=== PATIENT | female | born 1975 | race Caucasian/White ===

== ENCOUNTER 2017-02-24 12:02 | Emergency (ER) | payer BC ==
[~2017-02-24] VITALS: Ht 152.4 cm; Wt 65.0 kg
[2017-02-24 12:04] VITALS: BP 138/74; PULSE 100; RESP 20; TEMP 97.9; O2SAT 99
[2017-02-24 12:17] VITALS: BP 139/80; PULSE 84; RESP 18; TEMP 98.8; O2SAT 100
[2017-02-24] MEDS ORDERED: LORazepam 2 MG/ML VIAL IV PUSH ONE (12:30)
[2017-02-24] MEDS ORDERED: KETOROLAC TROMETHAMINE 30 MG/ML (IVP) VIAL IV PUSH ONE (12:30)
[2017-02-24] MEDS ORDERED: SODIUM CHLORIDE 0.9% FLUSH 10 ML FLUSH IVF PRN (12:30)
--- NOTE | 2017-02-24 12:32 | PD ---
HPI Chief Complaint: Chest Pain Time Seen by Provider: 12:22 Travel History International Travel<30 days: No Contact w/Intl Traveler<30days: No Traveled to known affect area: No History of Present Illness HPI Examined in the presence of female nurse. 41-year-old female presents for evaluation of chest pain. Symptoms started 1 week ago. She describes it as a "heaviness" in the center of her chest which is constant. There are no aggravating or relieving factors. She endorses some paresthesias in her right arm as well as a "hot" sensation on both ears and some stiffness in her neck. She denies nausea or vomiting, shortness of breath, cough or congestion, fevers or chills, rash or recent travel, abdominal pain, lower extremity edema, history of DVT or PE. She reports that she has been having asthma and reflux symptoms for the past month but this feels different. She denies any known family history of coronary artery disease. She denies any personal history of hypertension, hyperlipidemia, diabetes, tobacco use. Primary care physician is Dr. Faustin. She has no other complaints. [facility] Social History Alcohol Use: No Tobacco Use: No Allergies-Medications (Allergen,Severity, Reaction): Coded Allergies: No Known Allergies (Unverified , 02/24/17) Reported Meds & Prescriptions Reported Meds & Active Scripts Active Reported Azurette (Desogestrel-Ethinyl Estradiol) 0.15-0.02/0.01 Mg (09/01) Tab 1 Tab PO DAILY Review of Systems Except as stated in HPI: all other systems reviewed are Neg Physical Exam Narrative GENERAL: This is a well-developed well-nourished female who appears somewhat anxious on initial examination. SKIN: Warm and dry. HEAD: Atraumatic. Normocephalic. EYES: Pupils equal and round. No scleral icterus. No injection or drainage. ENT: No nasal bleeding or discharge. Mucous membranes pink and moist. Tympanic movements appear normal. NECK: Trachea midline. No JVD. Neck supple full range of motion. No lymphadenopathy. CARDIOVASCULAR: Regular rate and rhythm. No murmur appreciated. RESPIRATORY: No accessory muscle use. Clear to auscultation. Breath sounds equal bilaterally. GASTROINTESTINAL: Abdomen soft, non-tender, nondistended. Hepatic and splenic margins not palpable. MUSCULOSKELETAL: No obvious deformities. No edema. NEUROLOGICAL: Awake and alert. No obvious cranial nerve deficits. Motor grossly within normal limits. Normal speech. PSYCHIATRIC: Appropriate mood and affect; insight and judgment normal. Data Data Last Documented VS Vital Signs Date Time Temp Pulse Resp B/P Pulse Ox O2 Delivery O2 Flow Rate FiO2 02/24/17 12:33 132/81 123/78 02/24/17 12:33 100 Nasal Cannula 2 02/24/17: 98.8 84 18 Orders Electrocardiogram (02/24/17 12:27) Ckmb (Isoenzyme) Profile (02/24/17 12:27) Complete Blood Count With Diff (02/24/17 12:27) Comprehensive Metabolic Panel (02/24/17 12:) D-Dimer (02/24/17 12:) Magnesium (Mg) (02/24/17 12:) Prothrombin Time / Inr (Pt) (02/24/17 12:) Act Partial Throm Time (Ptt) (02/24/17 12:) Troponin I (02/24/17 12:) Lipase (02/24/17 12:27) Chest, Single Ap (02/24/17 12:27) Ecg Monitoring (02/24/17 12:27) Bilateral Bp Monitoring (02/24/17 12:) Iv Access Insert/Monitor (02/24/17 12:) Oximetry (02/24/17 12:27) Oxygen Administration (02/24/17 12:27) Sodium Chloride 0.9% Flush (Ns Flush) (02/24/17 12:30) Ed Urine Pregnancytest Poc (02/24/17 12:27) Lorazepam Inj (Ativan Inj) (02/24/17 12:30) Ketorolac Inj (Toradol Inj) (02/24/17 12:30) Potassium Chloride (Kcl) (02/24/17 13:45) Labs Laboratory Tests Test 02/24/17 12:43 White Blood Count 8.3 TH/MM3 Red Blood Count 4.61 MIL/MM3 Hemoglobin 14.0 GM/DL Hematocrit 40.6 % Mean Corpuscular Volume 88.0 FL Mean Corpuscular Hemoglobin 30.5 PG Mean Corpuscular Hemoglobin 34.6 % Concent Red Cell Distribution Width 13.2 % Platelet Count 222 TH/MM3 Mean Platelet Volume 9.5 FL Neutrophils (%) (Auto) 49.0 % Lymphocytes (%) (Auto) 41.8 % Monocytes (%) (Auto) 7.6 % Eosinophils (%) (Auto) 1.3 % Basophils (%) (Auto) 0.3 % Neutrophils # (Auto) 4.1 TH/MM3 Lymphocytes # (Auto) 3.5 TH/MM3 Monocytes # (Auto) 0.6 TH/MM3 Eosinophils # (Auto) 0.1 TH/MM3 Basophils # (Auto) 0.0 TH/MM3 CBC Comment DIFF FINAL Differential Comment Prothrombin Time 10.0 SEC Prothromb Time International 0.9 RATIO Ratio Activated Partial 25.4 SEC Thromboplast Time D-Dimer Quantitative (PE/DVT) 0.47 MG/L FEU Sodium Level 138 MEQ/L Potassium Level 3.3 MEQ/L Chloride Level 105 MEQ/L Carbon Dioxide Level 24.8 MEQ/L Anion Gap 8 MEQ/L Blood Urea Nitrogen 15 MG/DL Creatinine 0.70 MG/DL Estimat Glomerular Filtration 93 ML/MIN Rate Random Glucose 86 MG/DL Calcium Level 8.5 MG/DL Magnesium Level 2.1 MG/DL Total Bilirubin 0.3 MG/DL Aspartate Amino Transf 14 U/L (AST/SGOT) Alanine Aminotransferase 23 U/L (ALT/SGPT) Alkaline Phosphatase 47 U/L Total Creatine Kinase 53 U/L Troponin I LESS THAN 0.02 NG/ML Total Protein 7.0 GM/DL Albumin 3.3 GM/DL Lipase 153 U/L MDM Medical Decision Making Medical Screen Exam Complete: Yes Emergency Medical Condition: Yes Medical Record Reviewed: Yes Interpretation(s) EKG reveals sinus rhythm, rate 97 Differential Diagnosis Viral syndrome, pneumothorax, costochondritis, pericarditis, myocarditis, pulmonary embolism, acute coronary syndrome, aortic dissection, gastritis Narrative Course This is a 41-year-old female is for evaluation of one week of chest heaviness, paresthesias in the right arm, some "hot" sensation to the ears and stiff neck. Physical examination is reassuring. She has no meningeal signs. She is afebrile. She appears somewhat anxious and this could be attributing to her low -grade tachycardia. Her abdomen is soft and nontender. The patient was placed on ECG monitoring and pulse oximetry. A 12-lead EKG was immediately obtained and interpreted. plan is for basic lab work, chest x-ray. The patient's lab work and imaging studies are reassuring. Her d-dimer is negative. Her cardiac enzymes are negative and her EKG is nonischemic. Reassuringly the patient has no major risk factors for acute coronary syndrome and her heart score is 0. Her week long duration of discomfort is very atypical. At this point in time the plan will be to have the patient follow-up with her primary care physician. She does report that she has no outpatient endoscopy scheduled at some point in the future to further evaluate her GERD symptoms. Diagnosis Primary Impression: Atypical chest pain Additional Impression: Hypokalemia Additional Instructions: Follow-up closely with primary care physician. Return for any emergent medical conditions. Med/Other Pt SpecificInfo: No Change to Meds Disposition: 01 DISCHARGE HOME Condition: Stable Héctor Jha Feb 24, 2017 12:32
[2017-02-24 12:33] VITALS: BP_SYST 123; BP_SYST 132; BP_DIAS 78; BP_DIAS 81
[2017-02-24] MEDS ORDERED: DESO1TAB14 PO (12:41)
--- NOTE | 2017-02-24 13:07 | RADRPT ---
EXAM DATE/TIME: 02/24/2017 12:27 [facility] COMPARISON: No previous studies available for comparison. INDICATIONS : Chest pain, short of breath. MEDICAL HISTORY : Gastroesophageal reflux disease. SURGICAL HISTORY : None. ENCOUNTER: Initial ACUITY: 1 week PAIN SCORE: 9/10 LOCATION: Bilateral chest FINDINGS: A single view of the chest demonstrates the lungs to be symmetrically aerated without evidence of mas s, infiltrate or effusion. The cardiomediastinal contours are unremarkable. Osseous structures are intact. CONCLUSION: 1. No acute cardiopulmonary disease. Armando Cartwright MD on February 24, 2017 at 13:05 Board Certified Radiologist. This report was verified electronically.
[2017-02-24 13:09] LABS: AUTOMATED NEUTROPHIL # 4.1 TH/MM3 (1.8-7.7); BASOPHIL % 0.3 % (0.0-2.0); EOSINOPHIL # 0.1 TH/MM3 (0-0.4); EOSINOPHIL % 1.3 % (0.0-4.0); HEMATOCRIT 40.6 % (35.0-46.0); HEMO FLAGS DIFF FINAL; LYMPH % 41.8 % (9.0-44.0); LYMPHOCYTE # 3.5 TH/MM3 (1.0-4.8); MEAN CORPUSCULAR HEMOGLOBIN 30.5 PG (27.0-34.0); MEAN CORPUSCULAR HGB CONC 34.6 % (32.0-36.0); MONO % 7.6 % (0.0-8.0); PLATELET COUNT 222 TH/MM3 (150-450); RED BLOOD COUNT 4.61 MIL/MM3 (4.00-5.30); RED CELL DISTRIBUTION WIDTH 13.2 % (11.6-17.2); WHITE BLOOD COUNT 8.3 TH/MM3 (4.0-11.0)
[2017-02-24 13:21] LABS: APTT (PATIENT) 25.4 SEC (24.3-30.1); INTERNATIONAL NORMALIZED RATIO 0.9 RATIO
[2017-02-24 13:30] LABS: BLOOD UREA NITROGEN 15 MG/DL (7-18)
[2017-02-24 13:31] LABS: ALT (GPT) 23 U/L (10-53); ANION GAP 8 MEQ/L (5-15); AST (GOT) 14 U/L (15-37); BICARBONATE 24.8 MEQ/L (21.0-32.0); CHLORIDE 105 MEQ/L (98-107); GLOMERULAR FILTRATION RATE 93 ML/MIN (>89); MAGNESIUM 2.1 MG/DL (1.5-2.5); POTASSIUM 3.3 MEQ/L (3.5-5.1); SODIUM (NA) 138 MEQ/L (136-145)
[2017-02-24 13:36] LABS: ALKALINE PHOSPHATASE 47 U/L (45-117); TOTAL BILIRUBIN ADULT 0.3 MG/DL (0.2-1.0)
[2017-02-24] MEDS ORDERED: POTASSIUM CHLORIDE 20 MEQ CONTROLLED RELEASE TAB PO ONE (13:45)
[2017-02-24 13:51] LABS: CREATINE KINASE 53 U/L (26-192)
[2017-02-24 13:56] VITALS: BP 107/60; PULSE 88; RESP 16; O2SAT 100
--- NOTE | 2017-02-25 13:27 | EKG ---
Date Performed: 02/24/2017 Time Performed: 12:21:56 PTAGE: 41 years EKG: Sinus rhythm NORMAL ECG NO PREVIOUS TRACING DOCTOR: Danielito Islas Interpretating Date/Time 02/25/2017 13:23:15
== END 2017-02-24 14:59 | disposition home or self-care (01) ==
LOC: NEPC 12:02
DX: R07.89 Other chest pain (principal); E87.6 Hypokalemia; R00.0 Tachycardia, unspecified
CPT/HCPCS: 71010; 80053; 82550; 83690; 83735; 84484; 85025; 85379; 85610; 85730; 93005; 96374; 96375; 99285; J1885; J2060

== ENCOUNTER 2017-12-09 12:03 | Observation (INO) | payer BC ==
[~2017-12-09] VITALS: Ht 152.4 cm; Wt 64.1 kg
[~2017-12-09 12:03] MED LIST: DESO1TAB14 PO
[2017-12-09 12:07] VITALS: BP 134/88; PULSE 101; RESP 20; O2SAT 100
[2017-12-09 12:22] VITALS: BP 130/89; PULSE 90; RESP 18; O2SAT 98
[2017-12-09] MEDS ORDERED: SODIUM CHLORIDE 0.9% FLUSH 10 ML FLUSH IVF PRN (12:30)
--- NOTE | 2017-12-09 12:38 | RADRPT ---
EXAM DATE/TIME: 12/09/2017 12:29 [facility] COMPARISON: No previous studies available for comparison. INDICATIONS : Stroke alert, Left sided weakness in arm and leg RADIATION DOSE: 56.38 CTDIvol (mGy) This report was called to Armen MERA at 1235 MEDICAL HISTORY : PBC, Autoimmune disease SURGICAL HISTORY : Anal fistula repair ENCOUNTER: Initial ACUITY: 1 day PAIN SCALE: 0/10 LOCATION: cranial TECHNIQUE: Multiple contiguous axial images were obtained of the head. Using automated exposure control and adj ustment of the mA and/or kV according to patient size, radiation dose was kept as low as reasonably a chievable to obtain optimal diagnostic quality images. DICOM format image data is available electro nically for review and comparison. FINDINGS: CEREBRUM: The ventricles are normal for age. No evidence of midline shift, mass lesion, hemorrhage or acute in farction. No extra-axial fluid collections are seen. POSTERIOR FOSSA: The cerebellum and brainstem are intact. The 4th ventricle is midline. The cerebellopontine angle i s unremarkable. EXTRACRANIAL: The visualized portion of the orbits is intact. SKULL: The calvaria is intact. No evidence of skull fracture. CONCLUSION: Negative for acute process or hemorrhage Harman Stacy MD FACR on December 09, 2017 at 12:35 Board Certified Radiologist. This report was verified electronically.
--- NOTE | 2017-12-09 12:41 | PD ---
HPI Chief Complaint: Neuro Symptoms/ Deficits Time Seen by Provider: 12:23 Travel History International Travel<30 days: No Contact w/Intl Traveler<30days: No Traveled to known affect area: No History of Present Illness HPI 42-year-old female presents to the emergency department via private vehicle for evaluation of chest pain as well as difficulty speaking, left arm numbness and weakness to the left leg. Patient states that at approximately 11 AM, she was on the phone when she started to have difficulty speaking and numbness to her left arm as well as chest pain and weakness of the left lower extremity. Patient also reports a headache as well. She states that she has been having chest pain intermittently for over a year. She had a stress test over a year ago. She recently saw a new clin asst and she states the new clin asst thought there might have been an issue with the previous stress test and it was not normal. She was on metoprolol, but was taken off of that recently by her clin asst, Dr. Stevens, and [place]. She states that she was put on nitro patches, but they made her feel worse and gave her severe headaches. She was then placed on amlodipine. Patient currently rates the chest pain 8/10, pressure, to the midsternal chest, without radiation. No exacerbating or alleviating factors. Moderate severity. PFSH Past Medical History Anemia: Yes Autoimmune Disease: Yes (PBC) Reproductive: Yes ?: Not : 1 Para: 1 Past Surgical History Genitourinary Surgery: Yes Other Surgery: Yes (ANAL FISURE REPAIR) Social History Alcohol Use: No Tobacco Use: No Substance Use: No Allergies-Medications (Allergen,Severity, Reaction): Coded Allergies: morphine (Verified Allergy, Unknown, 12/09/17) Reported Meds & Prescriptions Reported Meds & Active Scripts Active Reported Amlodipine (Amlodipine Besylate) 2.5 Mg Tab 2.5 Mg PO DAILY Azurette (Desogestrel-Ethinyl Estradiol) 0.15-0.02/0.01 Mg (09/01) Tab 1 Tab PO DAILY Review of Systems Except as stated in HPI: all other systems reviewed are Neg Physical Exam Narrative GENERAL: Well-nourished, well-developed female patient, afebrile. SKIN: Focused skin assessment warm/dry. HEAD: Normocephalic. Atraumatic ENT: Mucosa pink and moist. No erythema or exudates. No uvular edema. No uvular , palatal, or tonsillar deviation. Airway patent. Nasal turbinates appear normal without nasal blood, purulent drainage or septal hematoma. Bilateral tympanic membranes clear without erythema or perforation. EYES: No scleral icterus. No injection or drainage. PERRLA. EOM intact NECK: Supple, trachea midline. No JVD or lymphadenopathy. CARDIOVASCULAR: Regular rate and rhythm without murmurs, gallops, or rubs. Lateral radial and pedal pulses 2+ RESPIRATORY: Breath sounds equal bilaterally. No accessory muscle use. Lung sounds clear to auscultation GASTROINTESTINAL: Abdomen soft, non-tender, nondistended. MUSCULOSKELETAL: No cyanosis, or edema. Patient reports sensation loss to left upper extremity. Bilateral upper extremities extremity strength 5/5. Left lower extremity strength 4/5, right lower extremity strength 5/5. She has slight difficulty with heel to mckenna with the left leg. Finger to nose is normal bilaterally BACK: Nontender without obvious deformity. No CVA tenderness. Data Data Last Documented VS Vital Signs Date Time Temp Pulse Resp B/P (MAP) Pulse Ox O2 Delivery O2 Flow Rate FiO2 12/09/17 12:43 103 16 129/75 (93) 100 Room Air Orders Orders Prothrombin Time / Inr (Pt) (12/09/17 12:23) Act Partial Throm Time (Ptt) (12/09/17 12:23) Complete Blood Count With Diff (12/09/17 12:23) Basic Metabolic Panel (Bmp) (12/09/17 12:23) Creatine Kinase (Cpk) (12/09/17 12:23) Troponin I (12/09/17 12:23) Urinalysis - C+S If Indicated (12/09/17 12:23) Chest, Single Ap (12/09/17 12:23) Ecg Monitoring (12/09/17 12:23) Iv Access Insert/Monitor (12/09/17 12:23) Oximetry (12/09/17 12:23) Sodium Chloride 0.9% Flush (Ns Flush) (12/09/17 12:30) I-Stat Profile (12/09/17 12:27) Magnesium (Mg) (12/09/17 12:27) Electrocardiogram (12/09/17 ) Ct Brain W/O Iv Contrast(Rout) (12/09/17 12:28) Lorazepam Inj (Ativan Inj) (12/09/17 12:45) Ed Urine Pregnancytest Poc (12/09/17 12:42) Aspirin Chew (Aspirin Chew) (12/09/17 13:00) Urine Culture (12/09/17 12:48) Sodium Chlor 0.9% 1000 Ml Inj (Ns 1000 M (12/09/17 13:30) Labs Laboratory Tests Test 12/09/17 12:30 12/09/17 12:48 White Blood Count 6.3 TH/MM3 Red Blood Count 4.46 MIL/MM3 Hemoglobin 14.4 GM/DL Bedside Hemoglobin 13.3 G/DL Hematocrit 41.0 % Bedside Hematocrit 39.0 % Mean Corpuscular Volume 92.0 FL Mean Corpuscular Hemoglobin 32.3 PG Mean Corpuscular Hemoglobin Concent 35.1 % Red Cell Distribution Width 13.9 % Platelet Count 227 TH/MM3 Mean Platelet Volume 9.0 FL Neutrophils (%) (Auto) 60.6 % Lymphocytes (%) (Auto) 29.5 % Monocytes (%) (Auto) 5.8 % Eosinophils (%) (Auto) 3.5 % Basophils (%) (Auto) 0.6 % Neutrophils # (Auto) 3.8 TH/MM3 Lymphocytes # (Auto) 1.9 TH/MM3 Monocytes # (Auto) 0.4 TH/MM3 Eosinophils # (Auto) 0.2 TH/MM3 Basophils # (Auto) 0.0 TH/MM3 CBC Comment DIFF FINAL Differential Comment Prothrombin Time 9.7 SEC Prothromb Time International Ratio 1.0 RATIO Activated Partial Thromboplast Time 25.9 SEC Bedside Sodium 139 MMOL/L Blood Urea Nitrogen 14 MG/DL Creatinine 0.59 MG/DL Random Glucose 90 MG/DL Calcium Level 9.1 MG/DL Sodium Level 139 MEQ/L Potassium Level 3.4 MEQ/L Chloride Level 108 MEQ/L Carbon Dioxide Level 21.3 MEQ/L Bedside Potassium 3.5 MMOL/L Bedside Chloride 107 MMOL/L Anion Gap 10 MEQ/L Bedside Blood Urea Nitrogen 13 MG/DL Bedside Creatinine 0.4 MG/DL Estimat Glomerular Filtration Rate 112 ML/MIN Bedside Glucose 92 MG/DL Magnesium Level 2.0 MG/DL Total Creatine Kinase 68 U/L Troponin I LESS THAN 0.02 NG/ML Urine Color LIGHT-YELLOW Urine Turbidity CLEAR Urine pH 5.5 Urine Specific [place] 1.004 Urine Protein NEG mg/dL Urine Glucose (UA) NEG mg/dL Urine Ketones 40 mg/dL Urine Occult Blood MOD Urine Nitrite NEG Urine Bilirubin NEG Urine Urobilinogen LESS THAN 2.0 MG/DL Urine Leukocyte Esterase NEG Urine RBC 12 /hpf Urine WBC 1 /hpf Urine Squamous Epithelial Cells 1 /hpf Urine Bacteria RARE /hpf Urine Mucus FEW /lpf Microscopic Urinalysis Comment CATH-CULTURE IND MDM Medical Screen Exam Complete: Yes Emergency Medical Condition: Yes Medical Record Reviewed: Yes EKG Prior to Arrival: Yes Differential Diagnosis CVA vs. TIA vs. ACS. vs. anxiety vs. intracranial hemorrhage vs. chest wall pain Narrative Course 42-year-old female presents to the emergency department for evaluation after an episode of difficulty speaking, left arm numbness, left leg weakness, chest pain. She denies any difficulty speaking at this time and states symptoms are slightly better. NIH stroke scale is 2. Stroke alert is called at 1223, Dr. Forbes was paged at 1223. Dr. Jones spoke with him at 1229. Dr. Stacy called at [address] of the head was negative. Upon further questioning of the patient and her , they state that she has had these symptoms with her chest pain in the past. Patient states last time they were like this was approximately 1 year ago. Patient is not TPA candidate. IV access established. CBC, BMP, CK, troponin, PTT, PT/INR, magnesium, UA, urine test are ordered and pending. CT of the brain and chest x-ray are ordered and pending. Patient is given Ativan 0.5 mg IV for anxiety. EKG shows sinus tachycardia, HR 103, no acute ST changes. CBC is unremarkable. BMP shows no acute abnormality. CK is 68. Troponin is less than 0.02. Magnesium is 2.0. Coags show no acute abnormality. UA shows 12 RBCs, 1 WBC, rare bacteria. UPT is negative. Ct of the brain is negative. Chest x-ray shows no acute disease. Patient is given ASA [address] was negative. Patient will be admitted for further evaluation of chest pain, neurological symptoms. [facility] is paged for admission. Dr. Edward accepted admission. Stroke Alert NIHSS NIH Stroke Scale Result: 2 NIHSS Time Completed: 12:18 Diagnosis Diagnosis: Primary Impression: Chest pain Qualified Codes: R07.9 - Chest pain, unspecified Additional Impression: Neurological complaint Admitting Physician Requests: Observation Tomasa Ayers Dec 09, 2017 12:41
[2017-12-09 12:43] VITALS: BP 129/75; PULSE 103; RESP 16; O2SAT 100
[2017-12-09] MEDS ORDERED: AMLO2.5T PO (12:43)
[2017-12-09] MEDS ORDERED: LORazepam 2 MG/ML VIAL IV PUSH ONE (12:45)
[2017-12-09 12:48] LABS: AUTOMATED NEUTROPHIL # 3.8 TH/MM3 (1.8-7.7); BASOPHIL % 0.6 % (0.0-2.0); EOSINOPHIL # 0.2 TH/MM3 (0-0.4); EOSINOPHIL % 3.5 % (0.0-4.0); HEMOGLOBIN 14.4 GM/DL (11.6-15.3); LYMPH % 29.5 % (9.0-44.0); LYMPHOCYTE # 1.9 TH/MM3 (1.0-4.8); MEAN CORPUSCULAR HEMOGLOBIN 32.3 PG (27.0-34.0); MEAN CORPUSCULAR HGB CONC 35.1 % (32.0-36.0); MONO % 5.8 % (0.0-8.0); MONOCYTE # 0.4 TH/MM3 (0-0.9); NEUT % 60.6 % (16.0-70.0); PLATELET COUNT 227 TH/MM3 (150-450); RED BLOOD COUNT 4.46 MIL/MM3 (4.00-5.30); RED CELL DISTRIBUTION WIDTH 13.9 % (11.6-17.2); WHITE BLOOD COUNT 6.3 TH/MM3 (4.0-11.0)
[2017-12-09 12:56] LABS: PROTHROMBIN TIME - PATIENT 9.7 SEC (9.8-11.6)
--- NOTE | 2017-12-09 12:58 | RADRPT ---
EXAM DATE/TIME: 12/09/2017 12:47 [facility] COMPARISON: CHEST SINGLE AP, February 24, 2017, 12:27. INDICATIONS : Headache, chest pain, and left arm numbness. MEDICAL HISTORY : Gastroesophageal reflux disease. SURGICAL HISTORY : None. ENCOUNTER: Initial ACUITY: 1 day PAIN SCORE: 6/10 LOCATION: Bilateral chest FINDINGS: A single view of the chest demonstrates the lungs to be symmetrically aerated without evidence of mas s, infiltrate or effusion. The cardiomediastinal contours are unremarkable. Osseous structures are intact. CONCLUSION: No acute disease. Connor White MD on December 09, 2017 at 12:55 Board Certified Radiologist. This report was verified electronically.
[2017-12-09] MEDS ORDERED: ASPIRIN 81 MG CHEW TAB CHEW ONE (13:00)
[2017-12-09 13:01] LABS: BACTERIA, URINE RARE /hpf; BILIRUBIN, URINE NEG (NEG); BLOOD, URINE MOD (NEG); GLUCOSE,URINE NEG (NEG); KETONE, URINE 40 mg/dL (NEG); MUCUS URINE FEW /lpf (OCC); NITRITE,URINE NEG (NEG); PH, URINE 5.5 (5.0-8.5); SQUAMOUS EPITHELIAL CELL URINE 1 /hpf (0-5); URINE COLOR LIGHT-YELLOW (YELLW/STRAW); URINE LEUKOCYTE ESTERASE NEG (NEG)
[2017-12-09 13:05] LABS: BICARBONATE 21.3 MEQ/L (21.0-32.0); BLOOD UREA NITROGEN 14 MG/DL (7-18); CALCIUM 9.1 MG/DL (8.5-10.1); CHLORIDE 108 MEQ/L (98-107); CREATININE 0.59 MG/DL (0.50-1.00); GLOMERULAR FILTRATION RATE 112 ML/MIN (>89); GLUCOSE,RANDOM 90 MG/DL (74-106); SODIUM (NA) 139 MEQ/L (136-145)
[2017-12-09 13:09] LABS: TROPONIN I LESS THAN 0.02 NG/ML (0.02-0.05)
[2017-12-09] MEDS ORDERED: SODIUM CHLOR 0.9% 1000 ML INJ 1,000 ML IV ONE (13:30)
[2017-12-09] MEDS ORDERED: BISACODYL 10 MG SUPP RECTAL PRN (14:30)
[2017-12-09] MEDS ORDERED: NALOXONE HCL 0.4 MG/ML AMP IV PUSH PRN (14:30)
[2017-12-09] MEDS ORDERED: SODIUM CHLORIDE 0.9% FLUSH 10 ML FLUSH IV FLUSH PRN (14:30)
[2017-12-09] MEDS ORDERED: MAGNESIUM HYDROXIDE SUSP 30 ML CUP PO PRN (14:30)
[2017-12-09] MEDS ORDERED: LACTULOSE SYRUP 20 GM/30 ML CUP PO PRN (14:30)
[2017-12-09] MEDS ORDERED: ACETAMINOPHEN 325 MG TAB PO PRN (14:30)
[2017-12-09] MEDS ORDERED: SENNOSIDES 8.6 MG TAB PO PRN (14:30)
[2017-12-09] MEDS ORDERED: ONDANSETRON HCL 4 MG/2 ML VIAL IVP PRN (14:30)
--- NOTE | 2017-12-09 14:39 | HHI.HP ---
HPI Service [facility] Primary Care Physician Unknown Admission Diagnosis chest pain, neurological symptoms Diagnoses: Chief Complaint: Dysarthria, chest pain, left arm numbness and weakness of the left leg. Travel History International Travel<30 Days: No Contact w/Intl Traveler <30 Da: No Traveled to Known Affected Are: No History of Present Illness Ms. Pringle is a pleasant 42 year old female with history of possible mild hypertension who presents to the ED today after she had dysarthria, left arm numbness, tingling and left leg weakness. 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 She felt as if words were not coming out properly. She had a headache in the occipital area as well. She reports that she follows up with a sec reporting consultant who took her off metoprolol a while back. She does taken Amlodipine 2.5mg. At the time of this interview, patient reports some left arm numbness but improved. No chest pain, shortness of breath , cough, fever, chills. No changes in bowel or bladder habits. Review of Systems Except as stated in HPI: all other systems reviewed are Neg Past Family Social History Past Medical History Possible hypertension, mild Iron deficiency Past Surgical History Anal fissure surgery Reported Medications Amlodipine (Amlodipine Besylate) 2.5 Mg Tab 2.5 Mg PO DAILY Azurette (Desogestrel-Ethinyl Estradiol) 0.15-0.02/0.01 Mg (09/01) Tab 1 Tab PO DAILY Allergies: Coded Allergies: morphine (Verified Allergy, Unknown, 12/09/17) Family History Mother and sister have hypertension, thyroid disease, hyperlipidemia Social History Patient denies using tobacco, illicit drugs or alcohol. Physical Exam Vital Signs Vital Signs Date Time Temp Pulse Resp B/P (MAP) Pulse Ox O2 Delivery O2 Flow Rate FiO2 12/09/17 12:43 103 16 129/75 (93) 100 Room Air 12/09/17 12:22 90 18 130/89 (103) 98 Room Air 12/09/17 12:07 101 20 134/88 (103) 100 Physical Exam GENERAL: This is a well-nourished, well-developed patient, in no apparent distress. SKIN: No rashes, ecchymoses or lesions. Warm and dry. HEAD: Atraumatic. Normocephalic. No temporal or scalp tenderness. EYES: Pupils equal round and reactive. No injection or drainage. ENT: Nose without bleeding, purulent drainage or septal hematoma. Airway patent. NECK: Trachea midline. No lymphadenopathy. Supple, nontender, no meningeal signs. CARDIOVASCULAR: Regular rate and rhythm without murmurs, gallops, or rubs. No JVD. RESPIRATORY: Clear to auscultation. Breath sounds equal bilaterally. No wheezes , rales, or rhonchi. GASTROINTESTINAL: Abdomen soft, non-tender, nondistended. No guarding. MUSCULOSKELETAL: Extremities without clubbing, cyanosis, or edema. NEUROLOGICAL: Awake and alert. Cranial nerves II through XII intact. No focal neurological deficits. Normal speech. Laboratory Laboratory Tests Test 12/09/17 12:30 12/09/17 12:48 White Blood Count 6.3 Red Blood Count 4.46 Hemoglobin 14.4 Bedside Hemoglobin 13.3 Hematocrit 41.0 Bedside Hematocrit 39.0 Mean Corpuscular Volume 92.0 Mean Corpuscular Hemoglobin 32.3 Mean Corpuscular Hemoglobin Concent 35.1 Red Cell Distribution Width 13.9 Platelet Count 227 Mean Platelet Volume 9.0 Neutrophils (%) (Auto) 60.6 Lymphocytes (%) (Auto) 29.5 Monocytes (%) (Auto) 5.8 Eosinophils (%) (Auto) 3.5 Basophils (%) (Auto) 0.6 Neutrophils # (Auto) 3.8 Lymphocytes # (Auto) 1.9 Monocytes # (Auto) 0.4 Eosinophils # (Auto) 0.2 Basophils # (Auto) 0.0 CBC Comment DIFF FINAL Differential Comment Prothrombin Time 9.7 Prothromb Time International Ratio 1.0 Activated Partial Thromboplast Time 25.9 Bedside Sodium 139 Blood Urea Nitrogen 14 Creatinine 0.59 Random Glucose 90 Calcium Level 9.1 Sodium Level 139 Potassium Level 3.4 Chloride Level 108 Carbon Dioxide Level 21.3 Bedside Potassium 3.5 Bedside Chloride 107 Anion Gap 10 Bedside Blood Urea Nitrogen 13 Bedside Creatinine 0.4 Estimat Glomerular Filtration Rate 112 Bedside Glucose 92 Magnesium Level 2.0 Total Creatine Kinase 68 Troponin I LESS THAN 0.02 Urine Color LIGHT-YELLOW Urine Turbidity CLEAR Urine pH 5.5 Urine Specific [place] 1.004 Urine Protein NEG Urine Glucose (UA) NEG Urine Ketones 40 Urine Occult Blood MOD Urine Nitrite NEG Urine Bilirubin NEG Urine Urobilinogen LESS THAN 2.0 Urine Leukocyte Esterase NEG Urine RBC 12 Urine WBC 1 Urine Squamous Epithelial Cells 1 Urine Bacteria RARE Urine Mucus FEW Microscopic Urinalysis Comment CATH-CULTURE IND Date/Time Source Procedure Growth Status 12/09/17 12:48 Urine Catheterized Urine Urine Culture Pending Received Result Diagram: 12/09/17 1230 12/09/17 1230 Imaging Last Impressions Head CT 12/09/17 1228 Signed Impressions: Service Date/Time: Saturday, December 09, 2017 12:29 - CONCLUSION: Negative for acute process or hemorrhage Harman Stacy MD FACR Chest X-Ray 12/09/17 1223 Signed Impressions: Service Date/Time: Saturday, December 09, 2017 12:47 - CONCLUSION: No acute disease. Connor White MD Brain MRI 12/09/17 0000 Signed Impressions: Service Date/Time: Saturday, December 09, 2017 16:50 - CONCLUSION: Negative MRI of the brain. There is no restricted diffusion to suggest an acute ischemic event. Harman Stacy MD FACR Caprini VTE Risk Assessment Caprini VTE Risk Assessment: No/Low Risk (score <= 1) Caprini Risk Assessment Model Point Value = 1 Point Value = 2 Point Value = 3 Point Value = 5 Age 41-60 Minor surgery BMI > 25 kg/m2 Swollen legs Varicose veins or History of unexplained or recurrent spontaneous Oral contraceptives or hormone replacement Sepsis (< 1 month) Serious lung disease, including pneumonia (< 1 month) Abnormal pulmonary function Acute myocardial infarction Congestive heart failure (< 1 month) History of inflammatory bowel disease Medical patient at bed rest Age 61-74 Arthroscopic surgery Major open surgery (> 45 min) Laparoscopic surgery (> 45 min) Malignancy Confined to bed (> 72 hours) Immobilizing plaster cast Central venous access Age >= 75 History of VTE Family history of VTE Factor V Leiden Prothrombin [id number] Lupus anticoagulant Anticardiolipin antibodies Elevated serum homocysteine Heparin-induced thrombocytopenia Other congenital or acquired thrombophilia Stroke (< 1 month) Elective arthroplasty Hip, pelvis, or leg fracture Acute spinal cord injury (< 1 month) Prophylaxis Regimen Total Risk Factor Score Risk Level Prophylaxis Regimen 0-1 Low Early ambulation 2 Moderate Order ONE of the following: *Sequential Compression Device (SCD) *Heparin 5000 units SQ BID 3-4 Higher Order ONE of the following medications: *Heparin 5000 units SQ TID *Enoxaparin/Lovenox 40 mg SQ daily (WT < 150 kg, CrCl > 30 mL/min) *Enoxaparin/Lovenox 30 mg SQ daily (WT < 150 kg, CrCl > 10-29 mL/min) *Enoxaparin/Lovenox 30 mg SQ BID (WT < 150 kg, CrCl > 30 mL/min) AND/OR *Sequential Compression Device (SCD) 5 or more Highest Order ONE of the following medications: *Heparin 5000 units SQ TID (Preferred with Epidurals) *Enoxaparin/Lovenox 40 mg SQ daily (WT < 150 kg, CrCl > 30 mL/min) *Enoxaparin/Lovenox 30 mg SQ daily (WT < 150 kg, CrCl > 10-29 mL/min) *Enoxaparin/Lovenox 30 mg SQ BID (WT < 150 kg, CrCl > 30 mL/min) AND *Sequential Compression Device (SCD) Assessment and Plan Problem List: (1) Atypical chest pain ICD Code: R07.89 - Other chest pain Status: Acute Assessment and Plan Ms. Pringle is a pleasant 42 year old female with a history of possible mild HTN who presents to the ED on 12/09/2017 due to chest pressure, left arm tingling, numbness and left leg weakness as well as dysarthria. Symptoms largely improved by the time she came to the ED. CT head, MRI brain negative for any acute findings. Troponins X 2 negative. EKG unremarkable for any acute ischemic findings. Chest pressure No ischemic changes on EKG, Troponins negative. We will check total 3 sets of troponins. Possibly related to anxiety. Tachycardia Mild hypertension BP is normal to lower side. Would recommend discontinuing Amlodipine. Patient reports that with activity, her heart rate very often goes to 120s, 130s. Persistent tachycardia could cause tachycardia induced heart failure in future Will check TSH, Free T4. If unremarkable, it would be reasonable to start her on some beta park. Possible TIA Headache CT, MRI studies are negative for any acute stroke. Daily aspirin 81mg may be beneficial. Will check Lipid panel in the AM as well. Patient's symptoms may be related to headache - Acetaminophen for symptomatic treatments. Chronic Iron deficiency - patient takes iron supplements. Her Hgb, MCV are within normal range. Full code. Ambulation. Sal Edward DO Dec 09, 2017 14:39
[2017-12-09 14:44] VITALS: BP 96/59; PULSE 87; RESP 16; TEMP 98.2; O2SAT 99
[2017-12-09 15:57] VITALS: BP 93/57; PULSE 84; RESP 16; TEMP 98; O2SAT 96
--- NOTE | 2017-12-09 17:20 | RADRPT ---
EXAM DATE/TIME: 12/09/2017 16:50 [place] COMPARISON: No previous studies available for comparison. INDICATIONS : Left sided weakness. MEDICAL HISTORY : None. SURGICAL HISTORY : Anal fissure. ENCOUNTER: Initial ACUITY: 1 day PAIN SCORE: 0/10 LOCATION: head TECHNIQUE: Multiplanar, multisequence MRI of the brain was performed without contrast. FINDINGS: CEREBRUM: The ventricles are normal for age. No evidence of midline shift, mass lesion, hemorrhage or acute in farction. No extraaxial fluid collections are seen. The pituitary gland and suprasellar cistern are normal in configuration. WHITE MATTER: No significant signal abnormalities are seen in the white matter. POSTERIOR FOSSA: The cerebellum and brainstem are intact. The 4th ventricle is midline. The cerebellopontine angle is unremarkable. The cerebellar tonsils are normal in position. DIFFUSION IMAGING: No focal areas of restricted diffusion are seen. No evidence of acute infarction. EXTRACRANIAL: The visualized portions of the orbits and paranasal sinuses are unremarkable. CONCLUSION: Negative MRI of the brain. There is no restricted diffusion to suggest an acute ischemic event. Harman Stacy MD FACR on December 09, 2017 at 17:17 Board Certified Radiologist. This report was verified electronically.
[2017-12-09 23:35] VITALS: BP 94/53; PULSE 76; RESP 18; TEMP 97.9; O2SAT 97
[2017-12-10] MEDS: SODIUM CHLORIDE 0.9% FLUSH 10 ML FLUSH IV FLUSH SCH ×2 (00:37→09:43)
[2017-12-10 04:55] VITALS: BP 100/55; PULSE 86; RESP 18; TEMP 98.1; O2SAT 98
[2017-12-10] MEDS ORDERED: SODIUM CHLOR 0.9% 1000 ML INJ 1,000 ML IV ONE (06:15)
[2017-12-10] MEDS ORDERED: KETOROLAC TROMETHAMINE 30 MG/ML (IVP) VIAL IV PUSH ONE (06:30)
[2017-12-10 07:30] VITALS: BP 102/64; PULSE 79; RESP 16; TEMP 98.1; O2SAT 99
[2017-12-10 08:00] VITALS: PULSE 83
--- NOTE | 2017-12-10 09:47 | HHI.PR ---
Subjective Remarks in no acute distress. has on and off chest pain. Objective Vitals Vital Signs Date Time Temp Pulse Resp B/P (MAP) Pulse Ox O2 Delivery O2 Flow Rate FiO2 12/10/17 07:30 98.1 79 16 102/64 (77) 99 12/10/17 04:55 98.1 86 18 100/55 (70) 98 12/09/17 23:35 97.9 76 18 94/53 (67) 97 12/09/17 15:57 98.0 84 16 93/57 (69) 96 12/09/17 14:44 98.2 87 16 96/59 (71) 99 Room Air 12/09/17 12:43 103 16 129/75 (93) 100 Room Air 12/09/17 12:22 90 18 130/89 (103) 98 Room Air 12/09/17 12:07 101 20 134/88 (103) 100 Result Diagram: 12/09/17 1230 12/09/17 1230 Imaging Last Impressions Head CT 12/09/17 1228 Signed Impressions: Service Date/Time: Saturday, December 09, 2017 12:29 - CONCLUSION: Negative for acute process or hemorrhage Harman Stacy MD FACR Chest X-Ray 12/09/17 1223 Signed Impressions: Service Date/Time: Saturday, December 09, 2017 12:47 - CONCLUSION: No acute disease. Connor White MD Brain MRI 12/09/17 0000 Signed Impressions: Service Date/Time: Saturday, December 09, 2017 16:50 - CONCLUSION: Negative MRI of the brain. There is no restricted diffusion to suggest an acute ischemic event. Harman Stacy MD FACR Objective Remarks GENERAL: This is a well-nourished, well-developed patient, in no apparent distress. CARDIOVASCULAR: Regular rate and regular rhythm without murmurs, gallops, or rubs. RESPIRATORY: Clear to auscultation. Breath sounds equal bilaterally. No wheezes , rales, or rhonchi. GASTROINTESTINAL: Abdomen soft, non-tender, nondistended. Normal, active bowel sounds MUSCULOSKELETAL: Extremities without clubbing, cyanosis, or edema. NEURO: Alert & Oriented x4 to person, place, time, situation. Moves all ext x4 Medications and IVs Inpatient Medications Acetaminophen (Tylenol) 650 mg Q4H PRN PO Headache, fever, pain 1-4; Start at 14:30 Aspirin (Aspirin Chew) 162 mg ONCE ONCE CHEW Last administered on 12/09/17at 13 :47; Start 12/09/17 at 13:00; Stop 12/09/17 at 13:01; Status DC Bisacodyl (Dulcolax Supp) 10 mg DAILY PRN RECTAL SEVERE CONSITIPATION; Start at 14:30 Ketorolac Tromethamine (Toradol Inj) 30 mg ONCE ONCE IV PUSH Last administered on 12/10/17at 06:55; Start 12/10/17 at 06:30; Stop 12/10/17 at 06:31 ; Status DC Lactulose (Lactulose Liq) 30 ml DAILY PRN PO SEVERE CONSITIPATION; Start at 14:30 Lorazepam (Ativan Inj) 0.5 mg ONCE ONCE IV PUSH Last administered on at 13:46; Start 12/09/17 at 12:45; Stop 12/09/17 at 12:46; Status DC Magnesium Hydroxide (Milk Of Magnesia Liq) 30 ml Q12H PRN PO Mild constipation ; Start 12/09/17 at 14:30 Naloxone HCl (Narcan Inj) 0.4 mg UNSCH PRN IV PUSH SEE LABEL COMMENTS; Start at 14:30 Ondansetron HCl (Zofran Inj) 4 mg Q6H PRN IVP NAUSEA OR VOMITING; Start at 14:30 Sennosides (Senokot) 17.2 mg Q12H PRN PO Moderate constipation; Start 12/09/17 at 14:30 Sodium Chloride 1,000 ml @ 999 mls/hr BOLUS ONCE IV Last administered on 12/10at 06:56; Start 12/10/17 at 06:15; Stop 12/10/17 at 07:15; Status DC Sodium Chloride (NS Flush) 2 ml BID IV FLUSH Last administered on 12/10/17at 00: 37; Start 12/09/17 at 21:00 A/P Problem List: (1) Atypical chest pain ICD Code: R07.89 - Other chest pain Status: Acute Assessment and Plan chest pressure No ischemic changes on EKG, Troponins negative. will proceed with stress test check d-dimer says that had a stress test a year ago- and being followed up by his target aircraft controller. Tachycardia Mild hypertension BP is normal to lower side. hold Amlodipine. Patient reports that with activity, her heart rate very often goes to 120s, 130s. Persistent tachycardia could cause tachycardia induced heart failure in future TSH, Free T4 pending. If unremarkable, it would be reasonable to start her on some beta park. Possible TIA Headache CT, MRI studies are negative for any acute stroke. Daily aspirin 81mg may be beneficial. Lipid panel reviewed. Patient's symptoms may be related to headache - Acetaminophen for symptomatic treatments. Chronic Iron deficiency - patient takes iron supplements. Her Hgb, MCV are within normal range. Full code. Ambulation. Discharge Planning pending stress test. Anai Christensen MD Dec 10, 2017 09:47
[2017-12-10 09:50] LABS: BICARBONATE 21.2 MEQ/L (21.0-32.0); BLOOD UREA NITROGEN 10 MG/DL (7-18); CHLORIDE 113 MEQ/L (98-107); CREATININE 0.48 MG/DL (0.50-1.00); GLOMERULAR FILTRATION RATE 143 ML/MIN (>89); GLUCOSE,RANDOM 75 MG/DL (74-106); SODIUM (NA) 143 MEQ/L (136-145); TROPONIN I LESS THAN 0.02 NG/ML (0.02-0.05)
[2017-12-10 09:56] LABS: CHOLESTEROL/ HDL RATIO 2.38 RATIO; FREE T4 1.37 NG/DL (0.76-1.46); HDL CHOLESTEROL 66.8 MG/DL (40.0-60.0)
[2017-12-10] MEDS ORDERED: ACETAMINOPHEN/HYDROcodone 325 MG/5 MG TAB PO ONE (10:00)
[2017-12-10 12:00] VITALS: BP 100/58; PULSE 79; RESP 16; TEMP 97.7; O2SAT 95
--- NOTE | 2017-12-10 12:02 | TR ---
Date Performed: 12/10/2017 Time Performed: 11:19:37 DOCTOR: Paresh Sosa DRUG LIST: CLINICAL HISTORY: CHEST PAIN REASON FOR TEST: Chest pain REASON FOR ENDING: OBSERVATION: CONCLUSION: Luis F protocol completed. Stopped sec to exceeding target heart rate and leg fagitue . Maximum GR=346 Target HR Oixctazo=077.0% Maximum KT=958/86 Total Exercise Time=5:06. No reprod ches t discomfort. Right arm discosmfort at peak, resolved quickly during recovery. No ectopy. No st t se gment changes, upsloping st segments. Fair exercise tolerance. Normal bp response. Recovery quick and unremarkable. Heart rate at baseline 100-110s. COMMENTS: Conclusion: Normal treadmill exercise. No evidence of ischemia. Resting heart rate is elevated.
--- NOTE | 2017-12-10 14:17 | HHI.DCPOC ---
Discharge Care Plan Diagnosis: (1) Atypical chest pain Goals to Promote Your Health * To prevent worsening of your condition and complications * To maintain your health at the optimal level Directions to Meet Your Goals Take your medications as prescribed Follow your dietary instruction Follow activity as directed Keep your appointments as scheduled Take your immunizations and boosters as scheduled If your symptoms worsen call your PCP, if no PCP go to Urgent Care Center or Emergency Room Smoking is Dangerous to Your Health. Avoid second hand smoke Call the 24-hour hour crisis hotline for domestic abuse at Collette Montemayor PA-C Dec 10, 2017 14:17
[2017-12-10] MEDS ORDERED: ASPI-147 PO (14:30)
--- NOTE | 2017-12-10 17:00 | EKG ---
Date Performed: 12/09/2017 Time Performed: 12:23:37 PTAGE: 42 years EKG: SINUS TACHYCARDIA ABNORMAL RHYTHM ECG Since the PREVIOUS TRACING , no significant change noted PREVIOUS TRACIN02/24/2017 12.21 DOCTOR: Rich Yung Interpretating Date/Time 12/10/2017 16:55:38
--- NOTE | 2017-12-10 17:00 | EKG ---
Date Performed: 12/10/2017 Time Performed: 06:13:59 PTAGE: 42 years EKG: Sinus rhythm LOW QRS VOLTAGE IN PRECORDIAL LEADS BORDERLINE ECG Since the PREVIOUS TRACING , no significant change noted PREVIOUS TRACIN12/09/2017 12.23 DOCTOR: Rich Yung Interpretating Date/Time 12/10/2017 16:55:46
== END 2017-12-10 16:23 | disposition home or self-care (01) ==
LOC: NEPC 12:03 → NEDA 14:19 → NEPHCDU 15:59
PROVIDERS: ADMIT Internal Medicine; ATTEND Internal Medicine
DX: R07.89 Other chest pain (principal); R20.0 Anesthesia of skin; R20.2 Paresthesia of skin; R53.1 Weakness; R51 Headache; I10 Essential (primary) hypertension; E61.1 Iron deficiency; K21.9 Gastro-esophageal reflux disease without esophagitis; R00.0 Tachycardia, unspecified; R94.31 Abnormal electrocardiogram [ECG] [EKG]
CPT/HCPCS: 70450; 70551; 71045; 80048; 80061; 81001; 82550; 83735; 84439; 84443; 84484; 84703; 85025; 85379; 85610; 85730; 87086; 93005; 93017; 96361; 96374; 96375; 99285; G0378; J1885; J2060; J7030